=== PATIENT | male | born 2000 | race African-American/Black ===

== ENCOUNTER 2019-10-11 23:27 | Emergency (ER) | payer OTHER ==
[2019-10-11 23:38] VITALS: BP 127/81; PULSE 68; TEMP 98; BMI 36.2
[2019-10-12] MEDS ORDERED: IBUPROFEN 600 MG TABLET (FP) PO ONE ×2 (00:30→00:31)
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
== END 2019-10-12 00:40 | disposition home or self-care (01) ==
LOC: FER 23:27
DX: S16.1XXA Strain of muscle, fascia and tendon at neck level, initial encounter (principal); F99 Mental disorder, not otherwise specified; V43.52XA Car driver injured in collision with other type car in traffic accident, initial encounter; Y93.89 Activity, other specified; Y92.410 Unspecified street and highway as the place of occurrence of the external cause
CPT/HCPCS: 99281-25